=== PATIENT | male | born 2000 | race Caucasian/White ===

== ENCOUNTER 2019-03-21 07:43 | Emergency (ER) | payer BC, SELFPAY ==
[2019-03-21 07:56] VITALS: BP 116/76; PULSE 85; RESP 18; TEMP 36.8; O2SAT 100; BMI 17.1
--- NOTE | 2019-03-21 08:00 | ED.URI ---
HPI - URI/Sore Throat General Chief Complaint: Upper Respiratory Symptoms Stated Complaint: throat is tightening up Time Seen by Provider: 03/21/19 08:00 Source: patient Mode of arrival: Ambulatory Limitations: no limitations History of Present Illness HPI Narrative: 18-year-old male comes to the emergency department with complaint of feeling like his throat is tightening up. He indicates his upper airway. Patient states that it felt tight last night. Took some Benadryl didn't notice any difference. He states that continues to feel the same but does not feel like it's progressing in any way. He states he has had some nasal congestion a little bit of cough. He feels like his voice maybe a little raspy. He hasn't had any progressive symptoms. Patient did recently finish a prescription for azithromycin. Patient was on this for a bronchitis and had a albuterol inhaler as well. He has not had any fevers. He states his throat is maybe sore but minimally at the most. No nausea, no vomiting, no diarrhea constipation. No rashes skin changes or hives. Patient has not had any shortness of breath otherwise. He states he is not having any wheezing or difficulty with breathing. Patient denies any other past medical history. Denies any prior surgeries. No tobacco, alcohol or illicit. He does follow with primary care and he is accompanied by his mother. Related Data Previous Rx's Medication Instructions Recorded prednisone 40 mg PO DAILY #6 tab 03/21/19 Allergies Allergy/AdvReac Type Severity Reaction Status Date / Time No Known Drug Allergies Allergy Verified 03/21/19 07:56 Review of Systems Review of Systems ROS Unobtainable: All systems reviewed & are unremarkable except as noted in HPI and below Patient History Social History Smoking Status: Never smoker Smoking Status: Never smoker Substance Use Type: does not use Exam Narrative Exam Narrative: GEN: well nourished, thin, well appearing male, alert and oriented x 3, patient appears to be in mild distress. HEENT: Atraumatic, pupils are equal round reactive to light, extraocular movements are intact, nares are clear, TMs are clear with no fluid, there is no conjunctival pallor. Throat is erythematous without any exudates, no tonsillar enlargement or uvular deviation, no cervical lymphadenopathy. No thyromegaly. Patient does not have any swelling that's appreciable the oropharynx or neck. Patient is quite thin so his anatomy is well defined. No hoarseness or muffled voice. No stridor, able to swallow secretions without issue. HEART: Regular rate and rhythm without murmur, clicks, rubs. LUNGS:Lungs clear to auscultation, no wheezes, rales, crackles, chest moves symmetrically ABD:bowel sounds normal, soft, non-tender, no guarding, rebound, rigidity, no masses noted, no hepatosplenomegaly MSCL: Muscles strength 5/5 upper and lower extremities, full range of motion, normal gait NEURO:CN 2-12 intact, sensation normal. Initial Vital Signs Initial Vital Signs: Vital Signs Temperature 98.3 F 03/21/19 07:56 Pulse Rate 85 03/21/19 07:56 Respiratory Rate 18 03/21/19 07:56 Blood Pressure 116/76 03/21/19 07:56 Pulse Oximetry 100 03/21/19 07:56 Course Orders Ordered: Discontinued Medications Prednisone (Deltasone) 60 mg PO NOW ONE Stop: 03/21/19 08:19 Last Admin: 03/21/19 08:27 Dose: 60 mg Documented by: SCANAPO Vital Signs Vital signs: Vital Signs - 8 hr 03/21/19 07:56 Temperature 98.3 F Pulse Rate 85 Respiratory Rate 18 Blood Pressure 116/76 Pulse Oximetry 100 [facility] - URI/Sore Throat Lab Data Attestation: I reviewed the patient's lab results. Labs: Point of Care Testing Rapid Strep A Negative [facility] Narrative Medical decision making narrative: Patient comes in with tightness of his throat, no other symptoms. He has had some upper respiratory infection slight symptoms. He did finish azithromycin in 2 days ago potentially be having an allergic reaction although unlikely. He tried Benadryl last night with no change in has not had any progression of his symptoms. Plan for short course of steroids and patient to return if worsening symptoms. Discharge Plan Departure Patient Disposition: Home Clinical Impression: Throat tightness Discharge Date/Time: 03/21/19 09:03 Activity Restrictions/Additional Instructions: Follow up with primary care in the next 3-5 days if your symptoms have not totally resolved. Take prednisone once daily until gone. Return to the emergency department for fevers greater 100.4 F, rapidly worsening swelling of the throat, muffled voice, swelling of the neck, face or tongue new redness, stridor or high-pitched wheezing, inability to swallow secretions or saliva or other new or concerning symptoms. Prescriptions: New prednisone 20 mg tablet 40 mg PO DAILY Qty: 6 RF: 0 Stand Alone Forms: Work Release Note
[2019-03-21] MEDS: predniSONE 20 MG TABLET 60 MG PO (08:27)
[2019-03-21 09:02] VITALS: BP 109/68; PULSE 73; RESP 16; O2SAT 99
== END 2019-03-21 09:03 | disposition home or self-care (01) ==
PROVIDERS: Emergency Provider Emergency Medicine
DX: R07.0 Pain in throat (principal); R05 Cough; R09.81 Nasal congestion
CPT/HCPCS: 87880; 99283

== ENCOUNTER → 2021-04-10 11:22 | Outpatient (CLI) | payer OTHER, MEDICAID, SELFPAY ==
--- NOTE | 2021-04-10 11:25 | DI.RAD.S_ITS ---
PROCEDURE: XR FOOT RT MIN 3V INDICATIONS: Foot injury TECHNIQUE: 3 views of the foot were acquired. COMPARISON: None. FINDINGS: Bones: No fractures or dislocations. No suspicious bony lesions. Soft tissues: No tibiotalar joint effusion. Achilles tendon appears normal. IMPRESSION: No displaced fractures are seen on these plain films. If there is focal tenderness, or other clinical concern for a fracture not seen on these images in this patient with a given history of trauma, please consider a dedicated CT or a short-term followup plain film series (in 1-2 weeks) for further evaluation. Dictated by: Kirk Kwon M.D. on 04/10/2021 at 10:59 Approved by: Kirk Kwon M.D. on 04/10/2021 at 11:01
== END ==
PROVIDERS: Referring Provider Physician Assistant; Visit Provider Physician Assistant
DX: M79.671 Pain in right foot (principal)
CPT/HCPCS: 73630